=== PATIENT | male | born 1970 | race Caucasian/White ===

== ENCOUNTER 2018-10-17 19:19 | Emergency (ER) | payer BC ==
[2018-10-17 19:34] VITALS: BP 152/93
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
== END 2018-10-17 20:08 | disposition home or self-care (01) ==
LOC: UCCORT 19:19
DX: S54.02XA Injury of ulnar nerve at forearm level, left arm, initial encounter (principal); Y35.893A Legal intervention involving other specified means, suspect injured, initial encounter; Y92.9 Unspecified place or not applicable; F17.210 Nicotine dependence, cigarettes, uncomplicated
CPT/HCPCS: 99212; G0463

== ENCOUNTER 2019-02-04 18:42 | Emergency (ER) | payer BC ==
[2019-02-04 18:57] VITALS: BP 147/89
[2019-02-04] MEDS ORDERED: Amoxicillin PO (*) 500 MG CAP PO ONE (19:15)
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
== END 2019-02-04 19:34 | disposition home or self-care (01) ==
LOC: UCCORT 18:42
DX: J32.9 Chronic sinusitis, unspecified (principal); J02.9 Acute pharyngitis, unspecified; H92.09 Otalgia, unspecified ear
CPT/HCPCS: 99212; A9270-GY; G0463